=== PATIENT | female | born 1960 | race Caucasian/White ===

== ENCOUNTER 2018-03-14 15:22 | Emergency (ER) | payer OTHER ==
[2018-03-14] MEDS: KETOROLAC 30 MG INJ IM (17:48)
[2018-03-14 17:49] LABS: URINE BLOOD (Dip) POC 1+ (NEGATIVE); URINE GLUCOSE (Dip) POC Negative (NEGATIVE); URINE KETONES (Dip) POC Negative (NEGATIVE); URINE LEUKOCYTE EST (Dip) POC Negative (NEGATIVE); URINE NITRITE (Dip) POC Negative (NEGATIVE); URINE TOTAL PROTEIN POC Negative (NEGATIVE)
== END 2018-03-14 19:15 | disposition home or self-care (01) ==
LOC: FTE 15:22
DX: M75.42 Impingement syndrome of left shoulder (principal); I10 Essential (primary) hypertension; Z79.84 Long term (current) use of oral hypoglycemic drugs
CPT/HCPCS: 73030; 81003; 96372; 99284-25

== ENCOUNTER 2018-09-05 19:54 | Emergency (ER) | payer OTHER ==
[2018-09-05] MEDS: KETOROLAC 30 MG INJ IM (23:46)
[2018-09-05] MEDS: HYDROCODONE/APAP (5/325) TAB PO (23:46)
== END 2018-09-06 00:22 | disposition home or self-care (01) ==
LOC: FTE 09-06 00:22
DX: M54.12 Radiculopathy, cervical region (principal); I10 Essential (primary) hypertension; Z79.84 Long term (current) use of oral hypoglycemic drugs
CPT/HCPCS: 96372; 99284-25; J1885

== ENCOUNTER 2018-09-29 17:21 | Emergency (ER) | payer OTHER ==
[2018-09-30] MEDS: HYDROCODONE/APAP (5/325) TAB PO (01:19)
[2018-09-30] MEDS: predniSONE 20 MG TAB PO (01:20)
[2018-09-30] MEDS: KETOROLAC 30 MG INJ IM (01:20)
[2018-09-30] MEDS: DEXAMETHASONE 10 MG/ML 1 ML INJ IM (01:26)
== END 2018-09-30 02:01 | disposition home or self-care (01) ==
LOC: FTE 17:21
DX: M54.12 Radiculopathy, cervical region (principal); I10 Essential (primary) hypertension
CPT/HCPCS: 96372; 99284-25